=== PATIENT | male | born 2000 | race Caucasian/White ===

== ENCOUNTER 2024-11-22 00:26 | Emergency (ER) | payer BC, SELFPAY ==
[2024-11-22] VITALS (7 sets, daily range): BP systolic 125–132; BP diastolic 59–89; PULSE 92–121; RESP 14–25; TEMP 37.1–37.7; O2SAT 95–99
--- NOTE | ~2024-11-22 | XR_ITS ---
EXAMINATION: XR chest 1V portable DATE: 11/22/2024 01:40 INDICATION: Infection TECHNIQUE: frontal view of the chest was obtained. COMPARISON: None FINDINGS: Subtle perihilar right upper lobe opacity along the minor fissure which could represent atelectasis o r pneumonia. No pulmonary edema, pleural effusion or pneumothorax. The cardiomediastinal silhouette i s normal. Visualized bones and soft tissues are unremarkable. IMPRESSION: 1. No acute cardiopulmonary disease. Reviewed, dictated and finalized at location A.
[2024-11-22 00:40] LABS: Glucose Point of Care 221 mg/dl (65-105)
--- OUTSIDE RECORDS SUMMARY | 2024-11-22 01:14 | XMS_ITS | Clinical Summary ---
Author Organization [facility] Address [address] [place] [id number] Care Team Providers Care Sales Enablement Analyst Name Role Phone None, Provider MD Primary Care Provider Unavaila ble Allergies No known active allergies Medications SOFTCLIX LANCETS Misc by Other route 5 (five) times daily. 8 Active Lancets Misc. (ACCU-CHEK SOFTCLIX LANCET DEV) Kit 8 Active ONETOUCH VERIO test stripIndications: Type 1 diabetes mellitus with hyperglycemia ([facility]/HCC HHS/HCC) Use as instructed to test blood sugar 5 times per day. 450 strip 3 2 Active Insulin Pen Needle (B-D UF III MINI PEN NEEDLES) 31G X 5 MM MiscIndications:T ype 1 diabetes mellitus with hyperglycemia ([facility]/HCC HHS/HCC) Use for insulin injections 4 times a day 300 each 3 3 Active glucagon (GLUCAGON EMERGENCY) 1 MG injectionIndicati ons:Type 1 diabetes mellitus without complication (CMS/HCC HHS/HCC) Inject 1 mg into the muscle once as needed. 1 kit 1 4 Active Insulin Aspart FlexPen 100 UNIT/ML Solution Pen-injectorIndic ations:Type 1 diabetes mellitus without complication (CMS/HCC HHS/HCC) 65 Units by Does not apply route daily. INJECT UP TO 65 UNITS UNDER THE SKIN DAILY BASED ON CARB COUNT 60 mL 3 4 Active insulin degludec (TRESIBA FLEXTOUCH) 100 UNIT/ML Solution Pen-injector injectionIndicati ons:Type 1 diabetes mellitus without complication (CMS/HCC HHS/HCC) Inject 50 Units into the skin nightly at bedtime. ADMINISTER 50 UNITS UNDER THE SKIN EVERY NIGHT AT BEDTIME Strength: 100 UNIT/ML 45 mL 3 4 Active Continuous Glucose Sensor (FREESTYLE NAYELI 3 PLUS SENSOR) MiscIndications:T ype 1 diabetes mellitus without complication ([facility]) Change every 15 days 2 each 6 4 Active Active Problems Problem Noted Date Diagnosed Date Type 1 diabetes mellitus wit h hyperglycemia ([facility]) 11/13/2015 Resolved Problems Problem Noted Date Diagnosed Date Resolved Date Encounter for preventive health examination 11/08/2015 04/16/2020 Immunizations Immunization Administration Dates Next Due Fluzone 6 Months+ Quad (0.5 mL Prefilled Syringe ) 06/30/2020 JORDAN (SinCola) COVID-19 AD26 VACCINE 0.5 ML IM SUSP 03/14/2021 Family History Medical History Relation Comments No Known Problems Father No Known Problems Mother No Known Problems Sister 1 No Known Problems Sister 2 No Known Problems Sister 3 Relation Status Comments Father Alive Maternal Grandfather Alive Maternal Grandmother Alive Mother Alive Paternal Grandfather Paternal Grandmother Sister 1 Alive Sister 2 Alive Sister 3 Alive Social History Tobacco Use Types Packs/Day Years Used Date Smoking Tobacco: Former Electronic Cigarettes Smokeless Tobacco: Never Tobacco Cessation:Counseling Given: Not Answered Comments:Non-smoker Alcohol Use Standard Drinks/Week Comments Yes 0 (1 standard drink = 0.6 oz pur e alcohol) AUDIT-C Answer Date Recorded Q1: How often do you have a drink containing alc ohol? Monthly or less 08/03/2020 Average Number of Drinks Not on file 020 Frequency of Binge Drinking Not on file 07/07 PHQ-2 Answer Date Recorded Patient Health Questionnaire-2 Score 0 12/03/2023 Sex and Gender Information Value Date Recorded Sex Assigned at Not on file Legal Sex Male 8:35 PM CDT Gender Identity Not on file Sexual Orientation Not on file Last Filed Vital Signs Vital Sign Reading Time Taken Comments Blood Pressure 136/80 07/21/2024 3:43 PM FIELD MACHINIST Pulse 86 07/21/2024 3:43 PM FIELD MACHINIST Temperature 36.8 C (98.3 F) 07/21/2024 3:43 PM FIELD MACHINIST Respiratory Rate 18 06/27/2022 4:04 PM FIELD MACHINIST Oxygen Saturation 97% 07/21/2024 3:43 PM FIELD MACHINIST Inhaled Oxygen Concentration - - Weight 95.3 kg (210 lb) 07/21/2024 3:43 PM FIELD MACHINIST Height 175.3 cm (5' 9 ) 07/21/2024 3:43 PM FIELD MACHINIST Body Mass Index 31.01 07/21/2024 3:43 PM FIELD MACHINIST Plan of Treatment Upcoming Encounters Date Type Department Care Team (Late st Contact Info) Description 01/19/2025 10:00 AM CDT Office Visit [facility] Diabetes and Endocrinology - [address] [phone] [place] [address] [place] [phone] Health Maintenance Due Date Last Done Comments Annual Physical 2002 Pneumococcal Vaccine: Pediatrics (0 to 5 Years) and At-Risk Patients (6 to 49 Years) (1 of 1 - PPSV23 or PCV20) 2005 10/16/2000 HPV Vaccines (3 - Male 2-dose series) 11/05/2014 08/13/2014, 04/14/2014 Hepatitis C 2017 Hepatitis B Vaccines (1 of 3 - 19+ 3-dose series) 2018 DTaP, Tdap and Td Vaccines (7 - Td or Tdap) 04/06/2021 04/06/2011, 08/23/2004, 10/16/2000, Additional history exists Lipid Panel 12/23/2022 12/23/2021, 10/22/2018 COVID-19 Vaccine ( - season) 2024 03/14/2021 PHQ-2 (Physician [place]) 08/06/2024 12/03/2023 Hemoglobin A1C 10/19/2024 07/21/2024, 07/06, 12/03/2023, Additional history exists Kidney Health Evaluation 07/21/2025 07/21/2024 Diabetes: Retinopathy Eye Exam 09/28/2025 09/28/2023, 03/24/2021 Meningococcal Vaccine Completed 04/28/2016, 011 Meningococcal B Vaccine Completed 11/08/2016, 04/28 RSV Immunizations Under 20 Months Aged Out No longer eligible based on patient's age to complete this topic Procedures Procedure Name Priority Date/Time Associated Diagnosis Comments HEMOGLOBIN, GLYCOSYLATED Routine 07/21/2024 Type 1 diabetes mellitus with hyperglycemia ([facility]) DIABETIC RETINOPATHY EXAM (NEGATIVE)(SCAN ORDER) Routine 09/28/2023 LIPID PANEL Routine 12/23/2021 9:18 AM CDT Type 1 diabetes mellitus without complication from Last 3 Months or Most Recently Relevant to Health Maintenance Results * HEMOGLOBIN, GLYCOSYLATED (07/21/2024) HGB A1C 9.2 % AMAYA GMAEZ DR [place] 07/21/2024 Zuleika Middleton MD LABORATORY Final Result Performing Organization Address [facility] Co [place] [address], * DIABETIC RETINOPATHY EXAM (NEGATIVE) (09/28/2023) [facility] Scanned SCANNING Final Resu lt Performing Organization Address City/[facility] Co de Phone Number [facility] * LIPID PANEL (12/23/2021 9:18 AM CDT) CHOLESTEROL 141 <200 MG/DL 12/23/2021 7:38 PM CDT [facility] TRIGLYCERIDES 87 <150 MG/DL 12/23/2021 7:38 PM CDT [facility] HDL 55 >40 MG/DL 12/23/2021 7:38 PM CDT [facility] LDL-C 69 <100 MG/DL 12/23/2021 7:38 PM CDT [facility] VLDL CALCULATION 17 5 - 28 MG/DL 12/23/2021 7:38 PM CDT [facility] CHOL/HDL RATIO 2.6 0.0 - 4.0 12/23/2021 7:38 PM CDT [facility] [place] LDL/HDL 1.3 0.41 - 2.13 12/23/2021 7:38 PM CDT [facility] [place], [place] NON HDL CHOLESTEROL 86 <140 MG/DL 12/23/2021 7:38 PM CDT [facility] [place] 12/23/2021 9:18 AM CDT us Zuleika Middleton MD LABORATORY Final Result [facility] [place] [address] [facility] [place] [phone], from Last 3 Months or Most Recently Relevant to Health Maintenance Insurance [facility] Care Teams Sales Enablement Analyst Relationship Specialty Start Date End Date None, Provider, PCP - General 08/13/18
--- NOTE | 2024-11-22 01:38 | PC.NURSE ---
EDP told this RN to hold off on blood cultures until we get lab work back
[2024-11-22 01:41] LABS: Basophils Absolute Auto 0.1 K/mm3 (0.0-0.1); Basophils Percent Auto 0.3 % (0.2-1.2); Eosinophils Percent Auto 0.2 % (0-4.4); Hematocrit 47.4 % (42.0-52.0); Hemoglobin 16.1 g/dL (14.0-18.0); Immature Granulocyte Absolute 0.08 K/mm3 (0.00-0.031); Immature Granulocyte Percent A 0.5 % (0-0.5); Immature Platelet Fraction Pct 4.2 % (0.9-11.2); Lymphocytes Absolute Auto 0.38 K/mm3 (0.9-3.2); Lymphocytes Percent Auto 2.4 % (18.3-44.2); Mean Corpuscular Hemoglobin 29.2 pg (26-34); Mean Platelet Volume 10.4 fl (7.4-10.4); Monocytes Absolute Auto 0.9 K/mm3 (0.1-0.6); Monocytes Percent Auto 5.5 % (2.6-8.5); Neutrophils Absolute Auto 14.5 K/mm3 (1.3-6.7); Neutrophils Percent Auto 91.1 % (45.5-73.1); Platelet Count Result 287 k/mm3 (150-375); Red Blood Count 5.51 M/mm3 (4.6-6.20); Red Cell Distribution Width 11.9 % (11.5-14.5); White Blood Count 15.9 K/mm3 (4.5-10.0)
[2024-11-22] MEDS: SODIUM CHLORIDE 0.9% IV 1,000 ML 999 ML IV CONT ×2 (01:44→02:32)
[2024-11-22] MEDS: ONDANSETRON INJ 4 MG/2 ML VIAL IV PUSH (01:44)
[2024-11-22 01:48] LABS: Lactic Acid Reflex 1.8 mmol/L (0.7-2.0)
[2024-11-22 01:49] LABS: Alanine Aminotransferase 25 U/L (6-50); Albumin Level 4.7 g/dL (3.5-5.1); Alkaline Phosphatase 93 U/L (38-126); Anion Gap 10 mmol/L (4-12); Aspartate Amino Transferase 19 U/L (17-59); Bilirubin,Total 0.8 mg/dL (0.2-1.3); Blood Urea Nitrogen 15 mg/dL (9-20); Calcium 9.1 mg/dL (8.4-10.2); Carbon Dioxide 30 mmol/L (22-30); Chloride 100 mmol/L (98-107); Estimated Glomerular Filt Rate > 60; Glucose 166 mg/dL (65-110); Lipase 29 U/L (23-300); Magnesium 1.7 mg/dL (1.6-2.3); Sodium 140 mmol/L (137-145)
[2024-11-22 01:58] LABS: Add Urine Microscopic? YES; Appearance Urine Clear (Clear); Bacteria Urine None Seen /hpf; Bilirubin Urine Negative (Negative); Blood Urine Negative (Negative); Color Urine Yellow (Yellow); Glucose Urine UA 3+ mg/dL (Negative); Ketones Urine Trace mg/dL (Negative); Leukocyte Esterase Ur Negative LEU/UL (Negative); Nitrate Urine Negative (Negative); Protein Urine Trace mg/dL (Negative); RBC Urine 0-2 /hpf (0-2); Specific Grav Ur 1.038 (1.001-1.035); Squamous Epithelial Cell Urine None Seen /hpf (Few); Urobilinogen Urine 0.2 mg/dL (<2.0); WBC Urine 0-5 /hpf (0-3); pH Urine 5.5 (5.0-9.0)
--- NOTE | 2024-11-22 02:51 | ED_ITS ---
HPI - General Adult General Chief complaint: Unspecified Stated complaint: hypoglycemia Time Seen by Provider: 11/22/24 00:48 History of Present Illness HPI narrative: Patient is a 24-year-old male who presents to the emergency department this evening complaining of nausea, vomiting and low glucose. Upon EMS arrival, patient's glucose was noted to be 60. He was administered 300 mg of D10 and 4 mg of Zofran. This improved patient's glucose 09/08/2019. Patient states that he has vomited approximately 8-9 times today. Denies any chest pain or shortness of breath, any abdominal pain and denies any urinary symptoms including dysuria or hematuria, denies any recent illness, fevers or chills. No additional symptoms or concerns at this time. Related Data Allergies Allergy/AdvReac Type Severity Reaction Status Date / Time No Known Allergies Allergy Verified 11/22/24 01:53 Review of Systems 2 Review of Systems: All systems are reviewed and are negative unless stated otherwise in the HPI. Exam 2 Narrative: General: Alert, awake, afebrile, in no acute distress. HEENT: PERRL, no rhinorrhea, no post nasal drip, oropharynx clear. Neck: Trachea midline, no JVD, no lymphadenopathy. Cardiovascular: Tachycardic with regular rhythm, no murmurs, rubs or gallops, no peripheral edema. Respiratory: Clear to auscultation bilaterally, no tachypnea, no wheezing, no rhonchi, no rubs, no respiratory distress. Abdomen: Soft, nontender, nondistended, no rebound, no guarding, no peritoneal signs. Musculoskeletal: No joint swelling or deformity, normal muscle tone. Skin: No rashes or petechia, no signs of infection. Psychiatric: Alert and oriented, normal behavior and judgment for situation. Neurological: Alert and oriented to person, place, and time. Follows all commands. No focal deficits, speech is clear and fluent. Course Vital Signs Vital signs: Vital Signs Temperature 99.8 F H 11/22/24 00:29 Pulse Rate 107 H 11/22/24 00:29 Respiratory Rate 21 H 11/22/24 00:29 Blood Pressure 129/78 11/22/24 00:29 Pulse Oximetry 97 11/22/24 00:29 Oxygen Delivery Room Air 11/22/24 00:29 Temperature 99.8 F H 11/22/24 00:29 Pulse Rate 92 11/22/24 01:47 Respiratory Rate 16 11/22/24 01:47 Blood Pressure 126/89 11/22/24 01:47 Pulse Oximetry 99 11/22/24 01:47 Oxygen Delivery Room Air 11/22/24 00:29 Medical Decision Making MDM Narrative Medical decision making narrative: The patient was evaluated by myself in the emergency department. History is obtained from patient who is an independent historian and physical exam was performed. External medical records were reviewed at this time. IV was established and pertinent tests were ordered. Patient was administered 4 mg IV Zofran for nausea and 2 L IV fluid bolus with normal saline. Patient continues to remain nauseous and at this time was administered 10 mg of IV Reglan. Laboratory results obtained revealing a leukocytosis of 15.9, likely reactive otherwise no acute process. Serum glucose 221. Imaging studies obtained included CXR which was independently interpreted by me revealing no acute cardiopulmonary process, which is pending final radiology interpretation. Differential diagnosis considerations include diabetic ketoacidosis, dehydration, electrolyte derangements, acute viral syndrome, gastroenteritis. Comorbidities impacting this visit include insulin-dependent diabetic. I have evaluated and discussed social determinants of health with the patient that could potentially impact subsequent diagnosis and treatment plans. On repeat assessment of the patient, reevaluation revealed that the patient is doing well and is in no acute distress. Patient symptoms have improved since he arrived to our emergency department. Repeat vital signs were all reviewed and noted to be stable. Differential diagnosis and treatment plan were discussed with the patient at bedside. Patient agrees with discussion and after shared medical decision making agrees with discharge. All questions were answered to the patient's satisfaction. Patient will follow up with his PCP in 3-5 days. A script for Zofran sent to patient's pharmacy to use as needed for nausea/vomiting. Patient was provided with strict return precautions and instructed to return to the emergency department if any new or worsening symptoms develop. The patient was discharged in stable condition. Vital Signs Vital Signs: Vital Signs Temperature 99.8 F H 11/22/24 00:29 Pulse Rate 107 H 11/22/24 00:29 Respiratory Rate 21 H 11/22/24 00:29 Blood Pressure 129/78 11/22/24 00:29 Pulse Oximetry 97 11/22/24 00:29 Oxygen Delivery Room Air 11/22/24 00:29 Temperature 99.8 F H 11/22/24 00:29 Pulse Rate 92 11/22/24 01:47 Respiratory Rate 16 11/22/24 01:47 Blood Pressure 126/89 11/22/24 01:47 Pulse Oximetry 99 11/22/24 01:47 Oxygen Delivery Room Air 11/22/24 00:29 Lab Data 11/22/24 01:32 11/22/24 01:32 Labs: Lab Results 11/22/24 11/22/24 Range/Units 00:37 01:32 WBC 15.9 H (4.5-10.0) K/mm3 RBC 5.51 (4.6-6.20) M/mm3 Hgb 16.1 (14.0-18.0) g/dL Hct 47.4 (42.0-52.0) % MCV 86.0 (80-100) fl MCH 29.2 (26-34) pg MCHC 34.0 (32-36) g/dl RDW 11.9 (11.5-14.5) % Plt Count 287 (150-375) k/mm3 MPV 10.4 (7.4-10.4) fl Immature Gran % (Auto) 0.5 (0-0.5) % Neut % (Auto) 91.1 H (45.5-73.1) % Lymph % (Auto) 2.4 L (18.3-44.2) % [place] % (Auto) 5.5 (2.6-8.5) % Eos % (Auto) 0.2 (0-4.4) % Baso % (Auto) 0.3 (0.2-1.2) % Lymph # (Auto) 0.38 L (0.9-3.2) K/mm3 [place] # (Auto) 0.9 H (0.1-0.6) K/mm3 Eos # (Auto) 0.0 (0-0.3) K/mm3 Baso # (Auto) 0.1 (0.0-0.1) K/mm3 Abs Immat Gran (auto) 0.08 H (0.00-0.031) K/mm3 Absolute Neuts (auto) 14.5 H (1.3-6.7) K/mm3 Absolute Nucleated RBC 0.000 (0.0-0.012) K/mm3 Nucleated RBC % 0.0 (0.0-0.2) % % Immature Plt Fraction 4.2 (0.9-11.2) % Sodium 140 (137-145) mmol/L Potassium 4.0 (3.4-5.0) mmol/L Chloride 100 (98-107) mmol/L Carbon Dioxide 30 (22-30) mmol/L Anion Gap 10 (4-12) mmol/L BUN 15 (9-20) mg/dL Creatinine 0.63 L (0.7-1.3) mg/dL Estim Creat Clear Calc Not Reportable Estimated GFR > 60 (59 - ) Glucose 166 H (65-110) mg/dL POC Capillary Glucose 221 H (65-105) mg/dl Lactic Acid 1.8 (0.7-2.0) mmol/L Calcium 9.1 (8.4-10.2) mg/dL Magnesium 1.7 (1.6-2.3) mg/dL Total Bilirubin 0.8 (0.2-1.3) mg/dL AST 19 (17-59) U/L ALT 25 (6-50) U/L Alkaline Phosphatase 93 (38-126) U/L Total Protein 8.0 (6.3-8.2) g/dL Albumin 4.7 (3.5-5.1) g/dL Lipase 29 (23-300) U/L Urine Color Yellow (Yellow) Urine Appearance Clear (Clear) Urine pH 5.5 (5.0-9.0) Ur Specific [place] 1.038 H (1.001-1.035) Urine Protein Trace (Negative) mg/dL Urine Glucose (UA) 3+ H (Negative) mg/dL Urine Ketones Trace H (Negative) mg/dL Ur Blood (Man) Negative (Negative) Urine Nitrate Negative (Negative) Urine Bilirubin Negative (Negative) Urine Urobilinogen 0.2 (<2.0) mg/dL Leukocyte Esterase Rfl Negative (Negative) CHAYITO/UL Urine RBC 0-2 (0-2) /hpf Urine WBC 0-5 (0-3) /hpf Ur Squamous Epith Cells None seen (Few) /hpf Urine Bacteria None seen /hpf Urine Casts 3-5 Discharge Plan Discharge Clinical Impression: Nausea & vomiting, Hypoglycemia Patient Disposition: Home Condition: Improved Instructions: Antibiotic Form, Acute Nausea and Vomiting (DC) Additional Instructions: Please follow-up with your family doctor within the next 3-5 days. Return to the ED if any new or worsening symptoms develop. Use the prescribed nausea medicine as needed for nausea/vomiting. Patient Language: Qatari Prescriptions: New ondansetron 4 mg tablet,disintegrating 4 mg PO Q8H PRN (Reason: nausea and vomiting) Qty: 10 0RF Follow-up/Referrals: Yoni Patel MD [Physician] - 3 Days UNKNOWN,DOCTOR [Primary Care Provider] - 3 Days Time of Disposition: 02:56
[2024-11-22] MEDS: METOCLOPRAMIDE HCL INJ 10 MG/2 ML VIAL IV PUSH (03:12)
[2024-11-22] MEDS: MORPHINE SULFATE (*CRX) 2 MG/ML INJ IV PUSH (03:13)
== END 2024-11-22 04:55 | disposition home or self-care (01) ==
PROVIDERS: Emergency Provider Emergency Medicine
DX: R11.2 Nausea with vomiting, unspecified (principal); E11.649 Type 2 diabetes mellitus with hypoglycemia without coma
CPT/HCPCS: 36415; 71045; 80053; 81001; 82948; 83605; 83690; 83735; 85025; 85055; 96361; 96374; 96375; 99284; J2270; J2405; J2765; J7030